=== PATIENT | male | born 1970 | race Caucasian/White ===

== ENCOUNTER 2019-11-27 16:35 | Emergency (ER) | payer SELFPAY ==
[2019-11-27 17:06] VITALS: BP 152/94
[2019-11-27 17:36] LABS: Influenza A Molecular NEGATIVE (Negative); Influenza B Molecular NEGATIVE (Negative)
[2019-11-27] MEDS ORDERED: Albuterol/Ipratropium NEB.SOL* Albuterol 2.5 MG/Ipratropium 0.5 MG 3 ML INH ONE (17:52)
--- NOTE | 2019-11-27 17:55 | UC ---
Respiratory Complaint HPI - HPI Summary HPI Summary: 49-year-old male who has been sick with cold and cough symptoms for the past 2 weeks. He states he is coughing up brownish sputum and feels like "when I had pneumonia". He states that he had flulike symptoms 2 weeks ago with fever or chills body aches but that has resolved and now he has just the lung congestion. - History of Current Complaint Chief Complaint: UCGeneralIllness Stated Complaint: COUGH,CONGESTION Time Seen by Provider: 11/27/19 17:43 Hx Obtained From: Patient Onset/Duration: Gradual Onset Timing: Intermittent Episodes Severity Initially: Mild Severity Currently: Mild Pain Intensity: 0 Character: Cough: Productive Aggravating Factors: Deep Breaths - Productive cough of brownish sputum Alleviating Factors: Nothing Associated Signs And Symptoms: Positive: Wheezing, URI, Nasal Congestion - Allergies/Home Medications Allergies/Adverse Reactions: Allergies Allergy/AdvReac Type Severity Reaction Status Date / Time No Known Allergies Allergy Verified 11/27/19 16:58 Home Medications: Home Medications Dextromethorphan Hb/Doxylamine [Night Time Cough Liquid] 1 dose PO ONCE [History Confirmed 11/27/19] PMH/Surg Hx/FS Hx/Imm Hx Previously Healthy: Yes - Surgical History Surgical History: None - Family History Known Family History: Positive: Non-Contributory - Social History Lives: With Family Alcohol Use: Occasionally Substance Use Type: None Smoking Status (MU): Former Smoker When Did the Patient Quit Smoking/Using Tobacco: 2009 Review of Systems All Other Systems Reviewed And Are Negative: Yes ENT: Positive: Nasal Discharge Respiratory: Positive: Cough - Productive cough of brown sputum. Is Patient Immunocompromised?: No Physical Exam Triage Information Reviewed: Yes Appearance: Well-Appearing, No Pain Distress, Well-Nourished Vital Signs: Initial Vital Signs Temp 97.7 F 11/27/19 16:59 Pulse 83 11/27/19 16:59 Resp 14 11/27/19 16:59 BP 152/94 11/27/19 16:59 Pulse Ox 96 11/27/19 16:59 Vital Signs Reviewed: Yes Eyes: Positive: Conjunctiva Clear ENT: Positive: Pharynx normal, TMs normal, Uvula midline Neck: Positive: Supple, Nontender, No Lymphadenopathy Respiratory: Positive: No respiratory distress, No accessory muscle use, Rhonchi , Wheezing - Scattered rhonchi and wheezing throughout but with good air movement. No Distress. Cardiovascular: Positive: RRR, No Murmur, Pulses Normal, Brisk Capillary Refill Musculoskeletal Exam: Normal Neurological Exam: Normal Psychological Exam: Normal Skin Exam: Normal Respiratory Course/Dx - Course Course Of Treatment: Chest x-ray: Possibility of pneumonia as interpreted by myself and Dr. Rangel. DuoNeb treatment: Patient had almost complete clearing of his lung [place] following the DuoNeb treatment. I am going to treat this patient with doxycycline and prednisone. He also has an albuterol nebulizer at home and he can do treatments every 4 hours as needed for tight cough or wheezing. - Differential Dx/Diagnosis Provider Diagnosis: Pneumonia, Bronchitis Discharge ED - Sign-Out/Discharge Documenting (check all that apply): Patient Departure All imaging exams completed and their final reports reviewed: No - Discharge Plan Condition: Fair Disposition: HOME Prescriptions: DOXYcycline CAP(*) [DOXYcycline 100MG CAP(*)] 100 mg PO BID 10 Days #20 cap predniSONE 10 mg TAB [Deltasone 10 MG TAB*] 10 mg PO DAILY 12 Days #30 tab Patient Education Materials: Community Acquired Pneumonia (DC) Forms: *Work Release Referrals: Anthony Gaming MD [Primary Care Provider] - Additional Instructions: Increase fluids, take the prednisone with food, no dairy products, multivitamins or antacids 2 hours before you take the doxycycline and 2 hours after you take doxycycline however be sure and take it with food. Use your albuterol nebulizer every 4 hours as needed for tight cough or wheezing. Definite follow-up with your primary care provider for recheck prior to the antibiotic being completed. - Billing Disposition and Condition Condition: FAIR Disposition: Home
--- NOTE | 2019-11-28 08:31 | UC ---
- Progress Note Progress Note: chest xray report: IMPRESSION: Right lower and middle lobe airspace opacification concerning for pneumonia. Course/Dx - Diagnoses Provider Diagnoses: Pneumonia, Bronchitis Discharge ED - Sign-Out/Discharge Documenting (check all that apply): Patient Departure All imaging exams completed and their final reports reviewed: Yes - Discharge Plan Condition: Fair Disposition: HOME Prescriptions: DOXYcycline CAP(*) [DOXYcycline 100MG CAP(*)] 100 mg PO BID 10 Days #20 cap predniSONE 10 mg TAB [Deltasone 10 MG TAB*] 10 mg PO DAILY 12 Days #30 tab Patient Education Materials: Community Acquired Pneumonia (DC) Forms: *Work Release Referrals: Anthony Gaming MD [Primary Care Provider] - Additional Instructions: Increase fluids, take the prednisone with food, no dairy products, multivitamins or antacids 2 hours before you take the doxycycline and 2 hours after you take doxycycline however be sure and take it with food. Use your albuterol nebulizer every 4 hours as needed for tight cough or wheezing. Definite follow-up with your primary care provider for recheck prior to the antibiotic being completed. - Billing Disposition and Condition Condition: FAIR Disposition: Home
== END 2019-11-27 18:28 | disposition home or self-care (01) ==
LOC: UCCORT 16:35
DX: J18.9 Pneumonia, unspecified organism (principal); J40 Bronchitis, not specified as acute or chronic; Z87.891 Personal history of nicotine dependence
CPT/HCPCS: 71046; 99202; A9270-GY; G0463

== ENCOUNTER 2019-12-18 12:12 | Emergency (ER) | payer SELFPAY ==
[2019-12-18 13:04] VITALS: BP 164/94
--- NOTE | 2019-12-18 14:33 | UC ---
Respiratory Complaint HPI - HPI Summary HPI Summary: 49 yo male was rxed eatomer this month for pneumonia He feels markedly improved (ie he no longer has malaise/fever) He is concerned because he still has a productive cough Last Pm had night sweats has had intermittent right subscapular pain no wt loss no fever - History of Current Complaint Chief Complaint: UCGeneralIllness Stated Complaint: CHEST CONGESTION,COUGH,ACHES Time Seen by Provider: 12/18/19 13:51 Hx Obtained From: Patient Onset/Duration: Gradual Onset, Lasting Weeks Timing: Constant Severity Initially: Moderate Severity Currently: None Pain Intensity: 0 Pain Scale Used: 0-10 Numeric Character: Cough: Productive, Sputum Description: - darl and thick Aggravating Factors: Nothing Alleviating Factors: Nothing Associated Signs And Symptoms: Positive: Negative - Allergies/Home Medications Allergies/Adverse Reactions: Allergies Allergy/AdvReac Type Severity Reaction Status Date / Time No Known Allergies Allergy Verified 12/18/19 13:04 PMH/Surg Hx/FS Hx/Imm Hx Previously Healthy: Yes Respiratory History: Pneumonia - Surgical History Surgical History: None - Family History Known Family History: Positive: Non-Contributory - Social History Alcohol Use: Occasionally Substance Use Type: None Smoking Status (MU): Former Smoker When Did the Patient Quit Smoking/Using Tobacco: 2009 Review of Systems All Other Systems Reviewed And Are Negative: Yes Constitutional: Positive: Negative Skin: Positive: Negative Eyes: Positive: Negative ENT: Positive: Negative Respiratory: Positive: Cough Cardiovascular: Positive: Negative Gastrointestinal: Positive: Negative Genitourinary: Positive: Negative Motor: Positive: Negative Neurovascular: Positive: Negative Musculoskeletal: Positive: Negative Neurological: Positive: Negative Psychological: Positive: Negative Physical Exam Triage Information Reviewed: Yes Appearance: Well-Appearing, No Pain Distress, Well-Nourished Vital Signs: Initial Vital Signs Temp 98 F 12/18/19 12:57 Pulse 75 12/18/19 12:57 Resp 16 12/18/19 12:57 BP 164/94 12/18/19 12:57 Pulse Ox 99 12/18/19 12:57 Vital Signs Reviewed: Yes Eyes: Positive: Conjunctiva Clear ENT: Positive: Hearing grossly normal. Negative: Nasal drainage, TMs normal, Trismus, Muffled voice, Dental tenderness, Uvula midline Dental Exam: Normal Neck: Positive: Supple, Nontender, No Lymphadenopathy Respiratory: Positive: No respiratory distress, No accessory muscle use, Crackles - right base and lateral chest Cardiovascular: Positive: RRR, No Murmur Musculoskeletal: Positive: ROM Intact, No Edema Neurological: Positive: Alert Psychological Exam: Normal Skin Exam: Normal Diagnostics - Radiology No standard instances Radiology Interpretation Completed By: Radiologist Summary of Radiographic Findings: Decreased airspace opacification the right lower and middle lobes Respiratory Course/Dx - Differential Dx/Diagnosis Provider Diagnosis: Pneumonia Discharge ED - Sign-Out/Discharge Documenting (check all that apply): Patient Departure All imaging exams completed and their final reports reviewed: Yes - Discharge Plan Condition: Stable Disposition: HOME Prescriptions: Amoxicillin/Clavulanate TAB* [Augmentin TAB 875*] 875 mg PO BID #14 tab Patient Education Materials: Pneumonia (ED) Referrals: Anthony Gaming MD [Primary Care Provider] - 2 Weeks (recheck in 2-3 weeks) Additional Instructions: your XR is still concerning for pneumonia see your primary care provider in 2-3 weeks if there is still evidence of pneumonia you may need further imaging/possibly a CT to ER for new or worsening symptoms - Billing Disposition and Condition Condition: STABLE Disposition: Home
== END 2019-12-18 14:43 | disposition home or self-care (01) ==
LOC: UCCORT 12:12
DX: J18.9 Pneumonia, unspecified organism (principal); Z87.891 Personal history of nicotine dependence
CPT/HCPCS: 71046; 99212; G0463